=== PATIENT | male | born 2000 | race Caucasian/White ===

== ENCOUNTER 2021-12-04 14:24 | Emergency (ER) | payer MEDICAID ==
[2021-12-04] MEDS ORDERED: TORAdol 30 mg Injection IM ONE (15:17)
[2021-12-04] MEDS ORDERED: TORAdol 30 mg Injection IV ONE (15:30)
[2021-12-04] MEDS ORDERED: TORAdol 30 mg Injection ONE (15:47)
[2021-12-04 15:55] VITALS: O2SAT 98
--- NOTE | 2021-12-04 15:55 | ERPHSYRPT ---
- History of Present Illness Time Seen by Provider: 12/04/21 14:40 Historian: patient Exam Limitations: no limitations Patient Subjective Stated Complaint: Abdominal pain Triage Nursing Assessment: Patient ambulated back to ED and transferred self to bed. Patient A+O x3. Patient's skin pink, warm and dry. Patient complains of RUQ pain 5/10 for the past few days. Patient complains of intermittent sharp pain 5/10 with N/V and diarrhea. Abdomen soft and round with BS X 4. Physician History: Patient is a 21-year-old male presents to our ED for evaluation of intermittent right upper quadrant pain. Patient has been experiencing this pain intermittently for the past several months. He has not followed up with a primary care doctor. Pain reoccurred today. Pain rated 5 out of 10. Pain described as a sharp sensation. Patient felt nauseous and vomited once. No diarrhea. No rash. No trauma. Symptoms are mild to moderate in intensity. No specific worsening improving factors. Patient denies chest pain. No trauma. No fever. Patient voices no other complaints or concerns at this time. Portions of this note were created with voice recognition technology. There may be grammatical, spelling, punctuation or sound alike errors Timing/Duration: today Activities at Onset: none Quality: sharpness Abdominal Pain Onset Location: RUQ Pain Radiation: no radiation Severity of Pain-Max: moderate Severity of Pain-Current: mild Modifying Factors: Improves With: nothing Associated Symptoms: denies symptoms Previous symptoms: same symptoms as today Allergies/Adverse Reactions: No Known Drug Allergies Allergy (Verified 12/04/21 14:30) Home Medications: No Home Meds 07/10/12 [History] Hx Tetanus, Diphtheria Vaccination/Date Given: Yes Hx Influenza Vaccination/Date Given: No Hx Pneumococcal Vaccination/Date Given: No Immunizations Up to Date: Yes Travel Risk - International Travel Have you traveled outside of the country in past 3 weeks: No - Coronavirus Screening Are you exhibiting any of the following symptoms?: No Close contact with a COVID-19 positive Pt in past 14-21 Days: No - Vaccine Status Have you recieved a Covid-19 vaccination: No - Review of Systems Constitutional: No Symptoms, No Fever, No Chills Eyes: No Symptoms Ears, Nose, & Throat: No Symptoms Respiratory: No Symptoms, No Cough, No Dyspnea Cardiac: No Symptoms, No Chest Pain, No Edema, No Syncope Abdominal/Gastrointestinal: No Symptoms, No Abdominal Pain, No Nausea, No Vomiting, No Diarrhea Genitourinary Symptoms: No Symptoms, No Dysuria Musculoskeletal: No Symptoms, No Back Pain, No Neck Pain Skin: No Symptoms, No Rash Neurological: No Symptoms, No Dizziness, No Focal Weakness, No Sensory Changes Psychological: No Symptoms Endocrine: No Symptoms Hematologic/Lymphatic: No Symptoms Immunological/Allergic: No Symptoms All Other Systems: Reviewed and Negative - Past Medical History Pertinent Past Medical History: No Neurological History: Other ENT History: No Pertinent History Cardiac History: No Pertinent History Respiratory History: No Pertinent History Endocrine Medical History: No Pertinent History Musculoskeletal History: No Pertinent History GI Medical History: No Pertinent History History: No Pertinent History Psycho-Social History: No Pertinent History Male Reproductive Disorders: No Pertinent History - Past Surgical History Past Surgical History: Yes Other Surgical History: T & A, TUBES IN EAR. - Social History Smoking Status: Never smoker Exposure to second hand smoke: Yes Drug Use: none Patient Lives Alone: No - Nursing Vital Signs Nursing Vital Signs: Initial Vital Signs Temperature 98.0 F 12/04/21 14:32 Pulse Rate 78 12/04/21 14:32 Respiratory Rate 15 12/04/21 14:32 O2 Sat by Pulse Oximetry 98 12/04/21 14:32 Pain Scale Pain Intensity 0 - Physical Exam General Appearance: no apparent distress, alert Eye Exam: PERRL/EOMI, eyes nml inspection Ears, Nose, Throat Exam: normal ENT inspection, pharynx normal, moist mucous membranes Neck Exam: normal inspection, non-tender, supple, full range of motion Respiratory Exam: normal breath sounds, lungs clear, No respiratory distress Cardiovascular Exam: regular rate/rhythm, normal heart sounds Gastrointestinal/Abdomen Exam: soft, No tenderness, No mass Back Exam: normal inspection, normal range of motion, No CVA tenderness, No vertebral tenderness Extremity Exam: normal inspection, normal range of motion, pelvis stable Neurologic Exam: alert, oriented x 3, cooperative, normal mood/affect, nml cerebellar function, sensation nml, No motor deficits Skin Exam: normal color, warm, dry Lymphatic Exam: No adenopathy SpO2 Interpretation: normal SpO2: 98 O2 Delivery: Room Air - Course Nursing assessment & vital signs reviewed: Yes - Radiology Ultrasound Exam Gallbladder Ultrasound: discussed w/radiologist (Per internet marketing director. Cholelithiasis without signs of cholecystitis) Ordered Tests: Active Orders 24 hr Category Date Time Status ABDOMEN AND PELVIS W/0 CONTRAS [CT] Stat Exams 12/04/21 15:17 Completed GALLBLADDER [US] Stat Exams 12/04/21 15:16 Completed CBC W DIFF Stat Lab 12/04/21 15:30 Completed CMP Stat Lab 12/04/21 15:30 Completed LIPASE Stat Lab 12/04/21 15:30 Completed Medication Summary Discontinued Medications Generic Name Dose Route Start Last Admin Trade Name Freq PRN Reason Stop Dose Admin Ketorolac Tromethamine 30 mg 12/04/21 15:17 12/04/21 15:29 Ketorolac Tromethamine 30 Mg/Ml Inj IM 12/04/21 15:18 Not Given STAT ONE Ketorolac Tromethamine 30 mg 12/04/21 15:30 12/04/21 15:48 Ketorolac Tromethamine 30 Mg/Ml Inj IV 12/04/21 15:31 30 mg STAT ONE Administration Ketorolac Tromethamine Confirm 12/04/21 15:47 Ketorolac Tromethamine 30 Mg/Ml Inj Administered 12/04/21 15:48 Dose 30 mg .ROUTE .STK-MED ONE Lab/Rad Data: Laboratory Result Diagrams 12/04/21 15:30 12/04/21 15:30 Laboratory Results 12/04/21 12/04/21 Range/Units 15:30 15:30 WBC 5.5 (4.0-10.5) x10^3/uL RBC 5.41 (4.1-5.6) x10^6/uL Hgb 15.8 (12.5-18.0) g/dL Hct 46.8 (42-50) % MCV 86.5 (78-100) fL MCH 29.2 (26-32) pg MCHC 33.8 (32-36) g/dL RDW 12.6 (11.5-14.0) % Plt Count 255 (150-450) x10^3/uL MPV 10.1 (7.5-11.0) fL Gran % 61.5 (36.0-66.0) % Immature Gran % (Auto) 0.4 (0.00-0.4) % Nucleat RBC Rel Count 0.0 (0.00-0.1) % Eos # (Auto) 0.13 (0-0.5) x10^3/uL Immature Gran # (Auto) 0.02 (0.00-0.03) x10^3u/L Absolute Lymphs (auto) 1.56 (1.0-4.6) x10^3/uL Absolute Monos (auto) 0.37 (0.0-1.3) x10^3/uL Absolute Nucleated RBC 0.00 (0.00-0.01) x10^3u/L Lymphocytes % 28.3 (24.0-44.0) % Monocytes % 6.7 (0.0-12.0) % Eosinophils % 2.4 (0.00-5.0) % Basophils % 0.7 (0.0-0.4) % Absolute Granulocytes 3.40 (1.4-6.9) x10^3/uL Basophils # 0.04 (0-0.4) x10^3/uL Sodium 139 (137-145) mmol/L Potassium 4.4 (3.5-5.1) mmol/L Chloride 104 (98-107) mmol/L Carbon Dioxide 27 (22-30) mmol/L Anion Gap 12.3 (5-15) MEQ/L BUN 13 (9-20) mg/dL Creatinine 0.96 (0.66-1.25) mg/dL Estimated GFR > 60.0 ML/MIN Glucose 100 (74-106) mg/dL Calcium 9.4 (8.4-10.2) mg/dL Total Bilirubin 1.10 (0.2-1.3) mg/dL AST 28 (17-59) U/L ALT 27 (0-50) U/L Alkaline Phosphatase 62 (38-126) U/L Serum Total Protein 7.2 (6.3-8.2) g/dL Albumin 4.5 (3.5-5.0) g/dL Lipase 59 (23-300) U/L - Progress Progress: improved Progress Note: Patient reassessed. Pain resolved. CT abdomen pelvis reveals mild adenitis. Patient also has cholelithiasis without cholecystitis. No indication for furthe r work-up at this time. Will discharge home. We will refer patient to general surgery. Patient voices no other complaints or concerns at this time. Portions of this note were created with voice recognition technology. There may be grammatical, spelling, punctuation or sound alike errors 12/04/21 16:52 Counseled pt/family regarding: lab results, diagnosis, need for follow-up, rad results - Departure Departure Disposition: Home Clinical Impression: Biliary colic, Cholelithiasis, Mesenteric adenitis Condition: Stable Critical Care Time: No Referrals: CARMEL MOORE [Primary Care Provider] - Follow up/PCP as directed ALEE LUNDBERG MD [ACTIVE STAFF] - Follow up/PCP as directed Additional Instructions: Discharge/Care Plan KEZIA POLANCO was seen on 12/04/21 in the Emergency Room. The patient was counseled regarding Diagnosis,Lab results, Imaging studies, need for follow up and when to return to the Emergency Room. Prescriptions given: Discharge Note I have spoken with the patient and/or caregivers. I have explained the patient's condition, diagnosis and treatment plan based on the information available to me at this time. I have answered the patient's and/or caregiver's questions and addressed any concerns. The patient and/or caregivers have as good understanding of the patient's diagnosis, condition and treatment plan as can be expected at this point. The vital signs have been stable. The patient's condition is stable and appropriate for discharge from the emergency department. The patient will pursue further outpatient evaluation with the primary care physician or other designated or consulting physician as outlined in the discharge instructions. The patient and/or caregivers are agreeable to this plan of care and follow-up instructions have been explained in detail. The patient and/or caregivers have received these instruction. The patient/and or caregivers are aware that any significant change in condition or worsening of symptoms should prompt an immediate return to this or the closest emergency department or call 911.
[2021-12-04 15:59] LABS: Basophil (Absolute #) 0.04 x10^3/uL (0-0.4); Eosinophil % 2.4 % (0.00-5.0); Eosinophil (Absolute #) 0.13 x10^3/uL (0-0.5); Hematocrit 46.8 % (42-50); Hemoglobin 15.8 g/dL (12.5-18.0); Lymphocyte (Absolute #) 1.56 x10^3/uL (1.0-4.6); Lymphocytes % 28.3 % (24.0-44.0); Mean Cell Volume 86.5 fL (78-100); Mean Corpuscular Hemoglobin 29.2 pg (26-32); Mean Corpuscular Hgb Concent. 33.8 g/dL (32-36); Mean Platelet Volume 10.1 fL (7.5-11.0); Monocyte (Absolute #) 0.37 x10^3/uL (0.0-1.3); Monocytes % 6.7 % (0.0-12.0); Neutrophil % 61.5 % (36.0-66.0); Platelet Count 255 x10^3/uL (150-450); Red Blood Count 5.41 x10^6/uL (4.1-5.6); Red Cell Distribution Width 12.6 % (11.5-14.0); White Blood Count 5.5 x10^3/uL (4.0-10.5)
[2021-12-04 16:05] LABS: ALBUMIN 4.5 g/dL (3.5-5.0); ALKALINE PHOSPHATASE 62 U/L (38-126); ANION GAP 12.3 MEQ/L (5-15); BLOOD UREA NITROGEN 13 mg/dL (9-20); CHLORIDE 104 mmol/L (98-107); Calcium 9.4 mg/dL (8.4-10.2); Carbon Dioxide 27 mmol/L (22-30); Creatinine 1 0.96 mg/dL (0.66-1.25); EST GLOMERULAR FILTRATION RATE > 60.0 ML/MIN; Glucose 100 mg/dL (74-106); LIPASE 59 U/L (23-300); Potassium 4.4 mmol/L (3.5-5.1); SGOT/AST 28 U/L (17-59); SGPT/ALT 27 U/L (0-50); SODIUM 139 mmol/L (137-145); Total Protein 7.2 g/dL (6.3-8.2)
--- NOTE | 2021-12-04 16:26 | XRAY ---
Indication: Cholecystitis. Two-dimensional gallbladder sonogram performed. Comparison: None Pancreas obscured due to overlying bowel gas. Gallbladder normally distended with tiny gallstones in the dependent portion. No gallbladder wall thickening or pericholecystic fluid. Common bile duct measures 2.5 mm. No intrahepatic biliary distention. Remaining visualized liver and right kidney are sonographically normal. Right kidney measures 10.4 cm in length. Impression: 1. Nonvisualization pancreas. 2. Cholelithiasis without cholecystitis or biliary distention.
--- NOTE | 2021-12-04 16:35 | XRAY ---
Indication: Right upper quadrant pain. Vomiting. Multiple contiguous axial images obtained through the abdomen and pelvis without contrast. Comparison: None Lung bases demonstrates right lower lobe peripheral subsegmental atelectasis/scarring. Heart not enlarged. Noncontrasted stomach and bowel loops appear nonobstructed with normal appendix. A few tiny left midabdomen mesenteric nodes with minimal stranding favoring adenitis. No free fluid/air. Remaining liver, gallbladder, pancreas, spleen, adrenal glands, kidneys, ureters, bladder, and aorta appear unremarkable for noncontrast exam. Osseous structures intact. No ventral or inguinal hernias. Impression: 1. Mild mesenteric adenitis. 2. Remaining CT abdomen/pelvis without contrast exam is negative.
[2021-12-04 16:54] VITALS: BP 136/88; PULSE 70
== END 2021-12-04 17:03 | disposition home or self-care (01) ==
LOC: ED 14:24
DX: K80.50 Calculus of bile duct without cholangitis or cholecystitis without obstruction (principal); K80.20 Calculus of gallbladder without cholecystitis without obstruction; I88.0 Nonspecific mesenteric lymphadenitis; R10.11 Right upper quadrant pain; R11.2 Nausea with vomiting, unspecified; Z28.310 Unvaccinated for COVID-19
CPT/HCPCS: 36000; 36415; 74176; 76705; 80053; 83690; 85025; 96374; 99284; J1885

== ENCOUNTER 2021-12-29 09:47 | Day surgery (SDC) | payer MEDICAID ==
--- NOTE | 2021-12-29 09:25 | HP ---
DATE OF SURGERY: 12/29/2021 HISTORY OF PRESENT ILLNESS: The patient is a 21-year-old was in the emergency department a few weeks ago. Ultrasound showed cholelithiasis. He had epigastric right upper quadrant pain associated with nausea and vomiting, pain off and on. No jaundice. Fourteen systems reviewed no chest pain or palpitations. Other systems negative or noncontributory as above and per preadmission questionnaire. PAST MEDICAL HISTORY: He denied any chronic illnesses. PAST SURGICAL HISTORY: He denied any prior surgeries. MEDICATIONS: None on a regular basis. ALLERGIES: NKDA. FAMILY HISTORY: Negative in regards to this problem. SOCIAL HISTORY: Denies alcohol abuse. REVIEW OF SYSTEMS: Fourteen systems reviewed negative or noncontributory as above and per preadmission questionnaire. No chest pain or palpitations. PHYSICAL EXAMINATION: GENERAL: No acute distress. HEENT: Sclerae nonicteric. NECK: No JVD. CHEST: Equal excursion, nonlabored breathing. CVS: Regular rate and rhythm. ABDOMEN: Soft, mild tenderness epigastrium. No peritoneal signs. EXTREMITIES: No significant edema. NEURO: Alert, oriented, moving extremities symmetrically. PSYCH: Appropriate mood and affect. IMPRESSION: Acute exacerbation of symptomatic cholelithiasis, chronic cholecystitis. I feel the patient would benefit from cholecystectomy. Risks and benefits explained in detail including but not limited to bleeding or infection, risk of trocar injury or hernia, risk of bowel, bladder or blood vessel injury, risk of bile leak, bile duct injury, retained stone or sludge possibly requiring further procedure either open or ERCP, general risk of anesthesia, deep venous thrombosis, pulmonary embolism, pneumonia, perioperative risk of aches, pains, bloating, constipation and/or loose stools possibly even chronic in nature. General risk of anesthesia or sedation but not limited to, consent obtained. Possibility of no improvement in his symptoms possibly requiring endoscopy, other studies or procedures or referrals. He understands and agrees to the planned procedure as well as possible need for open procedure, will proceed with laparoscopic cholecystectomy possible open when OR time available as an outpatient.
[~2021-12-29 09:47] MED LIST: Sensorcaine 0.25% 10 ML ONE
[2021-12-29] MEDS ORDERED: MEFOXIN 2 GM PREMIX** 2 GM/50 ML ML IV ONE (09:56)
[2021-12-29] MEDS ORDERED: Lactated Ringers 1,000 ML IV ONE ×2 (09:56→13:25)
[2021-12-29] MEDS ORDERED: Lactated Ringers 1,000 ML IV SCH (10:30)
[2021-12-29] MEDS ORDERED: Pepcid 20 MG VIAL IV ONE ×2 (10:32→10:50)
[2021-12-29] MEDS ORDERED: Transderm Scop 1.5MG Patch TOP PRN (10:32)
[2021-12-29] MEDS ORDERED: Reglan 10 MG/2 ML IV ONE (10:32)
[2021-12-29] MEDS ORDERED: Transderm Scop 1.5MG Patch ONE (10:50)
[2021-12-29] MEDS ORDERED: Reglan 10 MG/2 ML ONE (10:50)
[2021-12-29] MEDS ORDERED: MEFOXIN 2 GM PREMIX** 2 GM/50 ML ML IV SCH (11:00)
[2021-12-29] MEDS ORDERED: TORAdol 30 mg Injection ONE ×2 (11:17→15:00)
[2021-12-29] MEDS ORDERED: Zemuron 100 MG/10 ML ONE ×2 (11:17→11:59)
[2021-12-29] MEDS ORDERED: DIPRIVAN 200 MG/20 ML IV ONE (11:17)
[2021-12-29] MEDS ORDERED: Xylocaine-Mpf 2% 5 Ml Vial ONE (11:17)
[2021-12-29] MEDS ORDERED: Decadron 4 MG INJ ONE (11:17)
[2021-12-29] MEDS ORDERED: BRIDION 200MG/2ML IV ONE (11:17)
[2021-12-29] MEDS ORDERED: SUBLIMAZE 100 MCG/2 ML ONE ×3 (11:17→15:14)
[2021-12-29] MEDS ORDERED: Zofran 4 MG/2 ML VIAL ONE (11:17)
[2021-12-29] MEDS ORDERED: Ephedrine Sulfate 50 MG/ML ONE (11:22)
[2021-12-29] MEDS ORDERED: BREVIBLOC 100 MG/10 ML IV ONE (13:53)
[2021-12-29] MEDS ORDERED: MORPHINE SULFATE 4 MG INJ IV PRN (15:48)
[2021-12-29] MEDS ORDERED: NORCO 5/325 MG PO PRN (15:50)
[2021-12-29 16:18] VITALS: PULSE 98; O2SAT 98
[2021-12-29 16:24] VITALS: BP 162/94
--- NOTE | 2021-12-30 08:31 | OP ---
SURGERY DATE/TIME: 12/29/2021 1305 PREOPERATIVE DIAGNOSIS: Acute exacerbation of chronic cholecystitis, symptomatic cholelithiasis. POSTOPERATIVE DIAGNOSIS: Acute exacerbation of chronic cholecystitis, symptomatic cholelithiasis. PROCEDURE: Laparoscopic cholecystectomy. SURGEON: Dr. Saul Alcazar. ANESTHESIA: General. ESTIMATED BLOOD LOSS: Minimal. INDICATIONS: As noted above. Risks and benefits explained in detail but not limited to and consent obtained. DESCRIPTION OF PROCEDURE AND FINDINGS: The patient was taken to the operating room. General anesthesia was induced. Abdomen prepped and draped in usual sterile fashion. After official time out and no disagreement with planned procedure, a transverse incision made in the supraumbilical area. Fascia grasped pulled up. Veress needle inserted and tested with saline. Pneumoperitoneum opening pressure of 0 to 15. A 5 mm bladeless port and camera were inserted without difficulty followed by two - 5 mm right upper quadrant ports and 11 mm epigastric port. The patient was then positioned. The gallbladder retracted over the edge of the liver and laterally away from Calot's triangle. He had some acute on chronic inflammatory reaction. Dissected posterior, lateral to anterior fashion. There was an anterior artery which was isolated clipped and divided allowed access to the quite inflamed cystic duct and infundibular area this is slowly and carefully dissected posterior, lateral to anterior fashion. Once the critical view obtained both anteriorly and posteriorly, the cystic duct clipped x3 and divided in usual fashion. The gallbladder is slowly and carefully dissected free this was quite vascular. It had a lot6 of oozing from small, little venules and arterioles requiring clipping additional oozing side branches off the cystic vein, cystic artery branches directly on the gallbladder wall as necessary. There was one little pulsatile ooze directly on the anterior edge of the liver that required a couple clips. Gallbladder slowly and carefully dissected free. Just prior to releasing from final attachments to the liver, the liver bed re-inspected. Clips noted in place in the cystic duct and cystic artery stumps. No signs of any active bleeding or bile leakage from the liver bed itself. A small amount bile spilled from the gallbladder itself this had been suction irrigated as clear as possible. The gallbladder was released from final attachments and placed in the provided sac, pulled up in epigastrium and decompressed of bile then pulled free and passed off. Retrieving the moderate sized stones allowing the gallbladder and bag to be passed off. The 11 mm fascia defect was closed with puncture closure device with #1 Vicryl. Copious amount of irrigation accomplished lateral to the liver and subhepatic space irrigating clear. Liver bed re-inspected. Clips noted to be in place cystic duct and cystic artery stumps as well as a little tiny oozing branches. No signs of any active bleeding or bile leakage. Irrigation had been clear. It was felt there was no benefit from drain placement. Pneumoperitoneum decompressed. The wound irrigated out. Skin incision closed with 4-0 Vicryl. Steri-Strips and sterile dressing applied. The patient tolerated the procedure well. There were no immediate complications. Findings discussed with the family out in the waiting area.
== END 2021-12-29 16:38 | disposition home or self-care (01) ==
LOC: SDC 09:47
PROVIDERS: ATTEND Surgery
DX: K80.00 Calculus of gallbladder with acute cholecystitis without obstruction (principal)
CPT/HCPCS: J0694; J1100; J1885; J2270; J2405; J2704; J3010; A9270-GY